=== PATIENT | female | born 1950 | race Caucasian/White ===

== ENCOUNTER 2016-11-28 13:35 | Emergency (ER) | payer OTHER ==
[2016-11-28 13:40] VITALS: BMI 27.3
[2016-11-28] MEDS ORDERED: FAMOTIDINE 20 MG/50 ML IVPB 50 ML IVPB ONE ×2 (14:27→14:40)
[2016-11-28] MEDS ORDERED: SODIUM CHLORIDE 1,000 ML IV STA (14:27)
[2016-11-28] MEDS ORDERED: SUCRALFATE 1 GM/10 ML UNIT DOSE CUPS PO ONE (14:28)
--- NOTE | 2016-11-28 14:31 | PDOC ---
History of Present Illness - General Chief Complaint: Pain Stated Complaint: ABDOMINAL PAIN Time Seen by Provider: 11/28/16 14:23 History Source: Patient Exam Limitations: No Limitations - History of Present Illness Initial Comments: CHIEF COMPLAINT: 66 y/o afebrile female with no significant PMH c/o burning abdominal pain for the past 2 days. HISTORY OF PRESENT ILLNESS: The patient states her pain is worse when she eats and describes it as burning. She denies f/c, n/v/d, CP, SOB, back pain, hematuria, dysuria. The patient thinks she had her gallbladder removed. Vital signs on arrival are notable for pulse of 102. REVIEW OF SYSTEMS: GENERAL/CONSTITUTIONAL: No fever/chills. No weakness. No weight change. HEAD, EYES, EARS, NOSE AND THROAT: No change in vision. No ear pain or discharge. No sore throat. CARDIOVASCULAR: No chest pain or shortness of breath. RESPIRATORY: No cough, wheezing, or hemoptysis. GASTROINTESTINAL: +abd pain. No nausea, vomiting, diarrhea, constipation. GENITOURINARY: No dysuria, frequency, or change in urination. MUSCULOSKELETAL: No joint or muscle swelling or pain. No neck or back pain. SKIN: No rash or easy bruising. NEUROLOGIC: No headache, vertigo, loss of consciousness, or loss of sensation. PHYSICAL EXAM: GENERAL: The patient is awake, alert, and fully oriented, in moderate discomfort. The patient is in the position in the ER bed. HEAD: Normal with no signs of trauma. ENT: Pupils equal, round and reactive to light, extraocular movements intact, sclera anicteric, conjunctiva clear. Neck supple. ABDOMEN: Soft, non-distended, TTP of epigastric and RUQ. No rebound, guarding or rigidity. EXTREMITIES: Normal range of motion, no edema. NEUROLOGICAL: Normal speech, normal gait. CN II-XII grossly intact. PSYCH: Normal mood, normal affect. SKIN: Warm, dry, normal turgor, no rashes or lesions noted. Past History - Past Medical History Allergies/Adverse Reactions: Allergies Allergy/AdvReac Type Severity Reaction Status Date / Time No Known Allergies Allergy Verified 11/28/16 13:39 Home Medications: Ambulatory Orders Famotidine [Pepcid] 20 mg PO BID #20 tablet 11/28/16 Pantoprazole Sodium [Protonix] 40 mg PO DAILY #10 tablet. 11/28/16 Sucralfate [Carafate -] 1 gm PO QID #40 tablet 11/28/16 Other medical history: NONE - Surgical History Cholecystectomy: Yes - Psycho/Social/Smoking Cessation Hx Anxiety: No Suicidal Ideation: No Smoking History: Never smoked Information on smoking cessation initiated: No Hx Alcohol Use: No Drug/Substance Use Hx: No Substance Use Type: None *Physical Exam - Vital Signs Last Vital Signs Temp Pulse Resp BP Pulse Ox 97.7 F 102 H 20 132/89 99 11/28/16 13:37 11/28/16 13:37 11/28/16 13:37 11/28/16 13:37 11/28/16 13:37 Heart Score/ECG Review - ECG Intrepretation Comment:: Twelve-lead EKG was performed and reviewed by me. There is normal sinus rhythm with a normal rate. The axis is normal. The intervals are normal. There are no ST or T wave abnormalities. Impression: Normal twelve-lead EKG ED Treatment Course - LABORATORY CBC & Chemistry Diagram: 11/28/16 15:03 11/28/16 15:03 Medical Decision Making - Medical Decision Making A/P: 66 y/o afebrile female with gastritis. Plan is as follows: 1. labs 2. IV fluids 3. IV pepcid 4. PO carafate Labs unremarkable EKG normal Pt states she feels better Vital signs have improved. Will discharge to home with rx for pepcid, protonix and carafate. Suggested she follow diet instructions and f/u with either Dr. Contreras or GI doctor of her choice within 1 week if symptoms persist. Instructed her to return to the ER with any worsening or concerning symptoms. The patient verbalizes understanding of all instructions, has no further questions and is awaiting discharge. *DC/Admit/Observation/Transfer Diagnosis at time of Disposition: Gastritis Qualifiers: Gastritis type: unspecified gastritis Chronicity: acute Gastritis bleeding: without bleeding Qualified Code(s): K29.00 - Acute gastritis without bleeding - Discharge Dispostion Disposition: HOME Condition at time of disposition: Improved - Prescriptions Prescriptions: Sucralfate [Carafate -] 1 gm PO QID #40 tablet Famotidine [Pepcid] 20 mg PO BID #20 tablet Pantoprazole Sodium [Protonix] 40 mg PO DAILY #10 tablet.dr - Referrals Referrals: STAFF,NOT ON [Primary Care Provider] - Hong Contreras MD [Staff Physician] - - Patient Instructions Printed Discharge Instructions: DI for Gastritis Additional Instructions: Discharge Instructions: -Take medications as prescribed -Follow suggested diet -Follow up with Dr. Contreras or a Instrument Repair Technician of your choice if symptoms continue -Return to the ER with any worsening or concerning symptoms
[2016-11-28 15:16] LABS: BASOPHIL 0.1 % (0-2.0); EOSINOPHIL 0.4 % (0-4.5); MCH 28.4 pg (25.7-33.7); MEAN CELL VOLUME 86.1 fl (80-96); PLATELET COUNT 314 K/MM3 (134-434); RDW 14.5 % (11.6-15.6); WHITE BLOOD COUNT 8.6 K/mm3 (4.0-10.0)
--- NOTE | 2016-11-28 15:42 | PDOC ---
*Physical Exam - Vital Signs Last Vital Signs Temp Pulse Resp BP Pulse Ox 97.7 F 102 H 20 132/89 99 11/28/16 13:37 11/28/16 13:37 11/28/16 13:37 11/28/16 13:37 11/28/16 13:37 ED Treatment Course - LABORATORY CBC & Chemistry Diagram: 11/28/16 15:03 11/28/16 15:03 - ADDITIONAL ORDERS Additional order review: 11/28/16 15:03 RBC 4.79 MCV 86.1 MCHC 33.0 RDW 14.5 MPV 8.0 Neutrophils % 89.0 H Lymphocytes % 8.4 Monocytes % 2.1 L Eosinophils % 0.4 Basophils % 0.1 - Medications Given in the ED: ED Medications Discontinued Medications Generic Name Dose Route Start Last Admin Trade Name Lowellq PRN Reason Stop Dose Admin Famotidine/Sodium Chloride 50 mls @ 100 mls/hr 11/28/16 14:27 11/28/16 15:03 Pepcid 20 Mg Premixed Ivpb - IVPB 11/28/16 14:56 100 mls/hr ONCE ONE Administration Sodium Chloride 1,000 mls @ 1,000 mls/hr 11/28/16 14:27 11/28/16 15:02 Normal Saline - IV 11/28/16 15:26 1,000 mls/hr ASDIR STA Administration Sucralfate 1 gm 11/28/16 14:28 11/28/16 15:06 Carafate Oral Suspension - PO 11/28/16 14:29 1 gm ONCE ONE Administration Medical Decision Making - Medical Decision Making 11/28/16 15:41 Pt seen by the Advanced Practice Provider under my direct supervision Ancillary studies reviewed I agree with plan as outlined by the Advanced Practice Provider FARHAD Moseley *DC/Admit/Observation/Transfer Diagnosis at time of Disposition: Gastritis - Discharge Dispostion Disposition: HOME Condition at time of disposition: Improved - Prescriptions Prescriptions: Sucralfate [Carafate -] 1 gm PO QID #40 tablet Famotidine [Pepcid] 20 mg PO BID #20 tablet Pantoprazole Sodium [Protonix] 40 mg PO DAILY #10 tablet.dr - Referrals Referrals: Hong Contreras MD [Staff Physician] - STAFF,NOT ON [Primary Care Provider] - - Patient Instructions Printed Discharge Instructions: DI for Gastritis Additional Instructions: Discharge Instructions: -Take medications as prescribed -Follow suggested diet -Follow up with Dr. Contreras or a Lipstick Molder of your choice if symptoms continue -Return to the ER with any worsening or concerning symptoms
[2016-11-28 15:48] LABS: ALBUMIN 3.8 g/dl (3.4-5.0); ANION GAP 8 (8-16); CALCIUM 9.3 mg/dL (8.5-10.1); CO2 26 mmol/L (21-32); CREATININE 0.6 mg/dL (0.55-1.02); GLUCOSE,RANDOM 91 mg/dL (74-106); SGOT/AST 15 U/L (15-37); SGPT/ALT 25 U/L (12-78)
[2016-11-28 15:50] LABS: ALK PHOS 84 U/L (45-117); BILIRUBIN,TOTAL 0.5 mg/dL (0.2-1.0); TOT PROT 7.3 g/dl (6.4-8.2)
[2016-11-28] MEDS ORDERED: PANTOPRAZOLE 40 MG TABLET (FP) PO ONE (16:26)
[2016-11-28] MEDS ORDERED: PANTOPRAZOLE 40 MG TABLET (FP) ONE (16:36)
[2016-11-28 17:32] LABS: TROPONIN I < 0.02 ng/ml (0.00-0.05)
[2016-11-28 18:22] VITALS: BP 128/92; PULSE 90; TEMP 98.3
--- NOTE | 2016-11-29 10:26 | EKG ---
Test Reason : Blood Pressure : / mmHG Vent. Rate : 090 BPM Atrial Rate : 090 BPM P-R Int : 142 ms QRS Dur : 070 ms QT Int : 354 ms P-R-T Axes : 057 030 047 degrees QTc Int : 433 ms NORMAL SINUS RHYTHM LOW VOLTAGE QRS BORDERLINE ECG NO PREVIOUS ECGS AVAILABLE Confirmed by JUAN JOSE RYDER MD ([id number]) on 11/29/2016 10:26:42 AM Referred By: Confirmed By:JUAN JOSE RYDER MD
== END 2016-11-28 18:22 | disposition home or self-care (01) ==
LOC: JER 13:35
PROC: 3E033GC Introduction of Other Therapeutic Substance into Peripheral Vein, Percutaneous Approach (ICD-10-PCS; principal; 2016-11-28)
DX: K29.00 Acute gastritis without bleeding (principal)
CPT/HCPCS: 36415; 80053; 82550; 83690; 84484; 85025; 93005; 93010; 96365; 99283-25